=== PATIENT | female | born 1980 | race Caucasian/White ===

== ENCOUNTER 2019-05-16 21:17 | Emergency (ER) | payer OTHER ==
[2019-05-16 21:23] VITALS: BP 100/42; PULSE 55; TEMP 98.1; BMI 32.9
[2019-05-16] MEDS ORDERED: IBUPROFEN 600 MG TABLET (FP) PO ONE ×2 (21:45→21:55)
--- NOTE | 2019-05-16 21:56 | PDOC ---
History of Present Illness - General Chief Complaint: Injury Stated Complaint: LT ANKLE PAIN FROM FALL Time Seen by Provider: 05/16/19 21:45 History Source: Patient Exam Limitations: No Limitations Past History - Past Medical History Allergies/Adverse Reactions: Allergies Allergy/AdvReac Type Severity Reaction Status Date / Time khari Allergy Severe Swelling Verified 05/16/19 21:23 Home Medications: Ambulatory Orders No Home Medications 0 dose .ROUTE UTDICT 06/02/13 Oxycodone HCl/Acetaminophen [Percocet 5-325 mg Tablet] 1 - 2 tab PO Q4H PRN #10 tablet MDD 6 01/20/16 Asthma: No Cancer: No Cardiac Disorders: No COPD: No Diabetes: No HTN: No Seizures: No Thyroid Disease: Yes - Surgical History Cholecystectomy: Yes Gastric Stapling: Yes (sleeve) - Immunization History Td Vaccination: Yes (received 11/2012) Immunization Up to Date: Yes - Psycho Social/Smoking Cessation Hx Smoking Status: No Smoking History: Never smoked Have you smoked in the past 12 months: No Number of Cigarettes Smoked Daily: 0 Information on smoking cessation initiated: No Hx Alcohol Use: No Drug/Substance Use Hx: No Substance Use Type: None Hx Substance Use Treatment: No *Physical Exam - Vital Signs Last Vital Signs Temp Pulse Resp BP Pulse Ox 98.1 F 55 L 16 100/42 L 100 05/16/19 21:22 05/16/19 21:22 05/16/19 21:22 05/16/19 21:22 05/16/19 21:22 - Physical Exam General Appearance: No: Apparent Distress Extremity: positive: Other (+swelling and TTP along L lateral malleolus, +pain with movement of L ankle, LLE neurovascularly intact, no other area of trauma noted) Integumentary: negative: Ecchymosis, Bruising Neurologic: positive: Alert ED Treatment Course - RADIOLOGY Radiology Studies Ordered: Category Date Time Status ANKLE & FOOT-LEFT* [RAD] Stat Radiology 05/16/19 21:46 Ordered Medical Decision Making - Medical Decision Making 39 y/o F with no sig pmh presents with twisting L ankle while going down the stairs. States she missed a step (fell down 2 steps). Denies other trauma. L ankle injury Plan: Xray, motrin 05/16/19 21:56 xray negative for fracture given ankle stirrup, crutches stable for d/c 05/16/19 22:17 Discharge - Discharge Information Problems reviewed: Yes Clinical Impression/Diagnosis: Left ankle sprain Qualifiers: Encounter type: initial encounter Involved ligament of ankle: unspecified ligament Qualified Code(s): S93.402A - Sprain of unspecified ligament of left ankle, initial encounter Condition: Stable Disposition: HOME - Admission No - Additional Discharge Information Prescription Drug Monitoring Program (I-STOP) results: I-STOP not reviewed - Follow up/Referral - Patient Discharge Instructions Patient Printed Discharge Instructions: DI for Ankle Sprain Additional Instructions: Thank you for choosing [facility]. It was a pleasure taking care of you. You may take Motrin 600 mg every 6 hours by mouth as needed for mild to moderate pain. Take Motrin with food. Apply ice over site of swelling Keep leg elevated above level of heart Return to the Emergency Department if your symptoms worsen or persist or have other concerning symptoms. - Post Discharge Activity Work/Back to School Note: Back to Work
== END 2019-05-16 22:18 | disposition home or self-care (01) ==
LOC: JERFT 21:17
PROC: 2W3RX1Z Immobilization of Left Lower Leg using Splint (ICD-10-PCS; principal; 2019-05-16)
DX: S93.402A Sprain of unspecified ligament of left ankle, initial encounter (principal); W10.8XXA Fall (on) (from) other stairs and steps, initial encounter; Y93.89 Activity, other specified; Y92.018 Other place in single-family (private) house as the place of occurrence of the external cause; Y99.8 Other external cause status
CPT/HCPCS: 29515; 73610-TC-LT-FY; 73630-TC-LT; 99281-25

== ENCOUNTER 2021-12-20 20:15 | Emergency (ER) | payer OTHER ==
[2021-12-20 21:18] VITALS: BP 116/79; PULSE 64; TEMP 97.9; BMI 33.3
[2021-12-20] MEDS ORDERED: IBUPROFEN 400 MG TABLET (FP) PO ONE ×2 (23:06→23:22)
[2021-12-20] MEDS ORDERED: CLINDAMYCIN HCL 300 MG CAPSULE PO ONE (23:06)
[2021-12-20] MEDS ORDERED: CLINDAMYCIN HCL 150 MG CAPSULE (FP) ONE (23:22)
== END 2021-12-20 23:35 | disposition home or self-care (01) ==
LOC: JER 20:15
DX: L03.011 Cellulitis of right finger (principal)
CPT/HCPCS: 99283-25